=== PATIENT | male | born 1975 | race Caucasian/White ===

== ENCOUNTER 2020-01-18 19:28 | Emergency (ER) | payer SELFPAY ==
[~2020-01-18] VITALS: Ht 170.2 cm; Wt 83.9 kg
[2020-01-18 19:32] VITALS: BP 125/99
[2020-01-18] MEDS ORDERED: ALBUTEROL SULFATE/IPRATROPIU 3 ML SOL IH ONE (19:40)
--- NOTE | 2020-01-18 19:40 | NUR ---
44 Y/O M C/O SOB X1 HOUR. PT STATES SMOKING PRIOR TO ASTHMATIC EPISODE. O2 SAT AT 97%. LUNG SOUNDS WHEEZING ALL THROUGHOUT. NO RESPIRATORY DISTRESS AND USE OF ACCESSORY MUSCLES NOTED. NO COUGH PRESENT. PT SPEAKS IN FULL SENTENCES WITHOUT GETTING SHORT OF BREATH. AIRWAY PATENT AND CLEAR. AAO X4. VSS. STEADY GAIT. BED IN LOWEST POSITION, SIDE RAIL UP X1. HX - ASTHMA, SMOKING. NKA
--- NOTE | 2020-01-18 19:49 | NUR ---
RT AT BEDSIDE.
[2020-01-18] MEDS ORDERED: ALBUTEROL 0.083% 2.5 MG/3 ML NEBU INH STA (19:58)
--- NOTE | 2020-01-18 20:09 | NUR ---
RT RELAYED MSG THAT PT STATED THAT HE TOOK METH.
--- NOTE | 2020-01-18 20:46 | NUR ---
PT ASLEEP, NO SOB NOTED, SYMMETRIC CHEST RISE. NO RESPIRATORY DISTRESS NOTED. BED IN LOWEST POSITION, SIDE RAIL UP X1. WILL CONTINUE TO MONITOR.
--- NOTE | 2020-01-18 21:15 | NUR ---
OF PT FLAKITA CONTACT INFO .
--- NOTE | 2020-01-18 21:31 | NUR ---
DR. WALKER AT BEDSIDE.
[2020-01-18 21:41] VITALS: BP 113/76
--- NOTE | 2020-01-18 21:41 | NUR ---
Patient discharged with v/s stable. Written and verbal after care instructions given and explained. Patient alert, oriented and verbalized understanding of instructions. Ambulatory with steady gait. All questions addressed prior to discharge. ID band removed. Patient advised to follow up with PMD. Rx of VENTOLIN HFA given. Patient educated on indication of medication including possible reaction and side effects. Opportunity to ask questions provided and answered.
== END 2020-01-18 21:38 | disposition home or self-care (01) ==
LOC: MED 19:28
DX: J45.901 Unspecified asthma with (acute) exacerbation (principal); F17.200 Nicotine dependence, unspecified, uncomplicated; Z71.6 Tobacco abuse counseling
CPT/HCPCS: 94640; 99284; J7613

== ENCOUNTER 2020-12-12 22:39 | Emergency (ER) | payer SELFPAY ==
[~2020-12-12] VITALS: Ht 170.2 cm; Wt 89.4 kg
[2020-12-12 22:43] VITALS: BP 146/90
[2020-12-12] MEDS ORDERED: ALBUTEROL SULFATE/IPRATROPIU 3 ML SOL IH ONE (23:05)
[2020-12-12] MEDS ORDERED: predniSONE 20 MG TAB PO ONE (23:05)
[2020-12-13 00:25] VITALS: BP 132/82
== END 2020-12-13 00:25 | disposition home or self-care (01) ==
LOC: MED 22:39
DX: J45.901 Unspecified asthma with (acute) exacerbation (principal); F12.10 Cannabis abuse, uncomplicated
CPT/HCPCS: 71045; 94640; 99283; J7512